=== PATIENT | female | born 1965 | race Caucasian/White ===

== ENCOUNTER 2020-07-04 15:08 | Emergency (ER) | payer BC, SELFPAY ==
--- NOTE | ~2020-07-04 | XR_ITS ---
XR chest 2V DATE: 07/04/2020 16:46 INDICATION: Left-sided chest pain for 3 weeks. History of mitral valve prolapse. TECHNIQUE: PA and lateral views COMPARISON: 04/17/2012 CT pulmonary scan 04/08/2012 two-view chest FINDINGS: Normal heart size. No hilar or mediastinal enlargement. The lungs are hyperinflated but eber ar of infiltrate or consolidation. No pleural effusion or pulmonary vascular congestion or pneumothor ax. Surgical clips, right upper quadrant, consistent with cholecystectomy. Included skeletal structures a re unremarkable. IMPRESSION: Bilateral hyperinflation; no active cardiopulmonary disease Reviewed, dictated and finalized at location B.
--- NOTE | 2020-07-04 15:09 | ECG_ITS ---
Measurements Intervals [place] Rate: 60 P: 48 DC: 138 QRS: 45 QRSD: 89 T: 34 QT: 384 QTc: 384 Interpretive Statements SINUS RHYTHM BORDERLINE ST-T WAVE ABNORMALITY- INFERIOR LEADS BASELINE ARTIFACT- I, II, III, AVR, AVL, AVF BORDERLINE ECG Electronically Signed On 07-04-2020 15:16:38 CDT by Dave Bradley D.O.
[2020-07-04 15:24] VITALS: BP 117/81; PULSE 62; RESP 17; TEMP 36.6; O2SAT 99
[2020-07-04 15:32] LABS: Basophils Percent Auto 0.6 % (0.2-1.2); Eosinophils Absolute Auto 0.1 K/mm3 (0-0.3); Eosinophils Percent Auto 1.2 % (0-4.4); Hematocrit 41.1 % (37.0-47.0); Hemoglobin 13.8 g/dL (12.0-15.0); Immature Granulocyte Absolute 0.01 K/mm3 (0.00-0.031); Immature Granulocyte Percent A 0.1 % (0-0.5); Lymphocytes Absolute Auto 2.14 K/mm3 (0.9-3.2); Lymphocytes Percent Auto 30.8 % (18.3-44.2); Mean Corpuscular HGB Conc 33.6 g/dl (32-36); Mean Corpuscular Hemoglobin 31.3 pg (26-34); Mean Corpuscular Volume 93.2 fl (80-100); Mean Platelet Volume 10.5 fl (7.4-10.4); Monocytes Absolute Auto 0.5 K/mm3 (0.1-0.6); Monocytes Percent Auto 6.8 % (2.6-8.5); Neutrophils Absolute Auto 4.2 K/mm3 (1.3-6.7); Neutrophils Percent Auto 60.5 % (45.5-73.1); Platelet Count Result 200 k/mm3 (150-375); Red Blood Count 4.41 M/mm3 (4.2-5.4); Red Cell Distribution Width 11.7 % (11.5-14.5); White Blood Count 6.9 K/mm3 (4.5-10.0)
[2020-07-04 15:39] LABS: Anion Gap 7 mmol/L (8-16); Blood Urea Nitrogen 21 mg/dL (7-17); Calcium 9.4 mg/dL (8.4-10.2); Carbon Dioxide 34 mmol/L (22-30); Chloride 103 mmol/L (98-107); Estimated CRCL calculation 57 ml/min; Estimated Glomerular Filt Rate > 60; Glucose 87 mg/dL (65-105); Sodium 144 mmol/L (137-145)
[2020-07-04 15:42] LABS: INR 1.1; Prothrombin Time 13.9 Seconds (11.1-14.7)
[2020-07-04 15:43] LABS: Partial Thromboplastin Time 30.4 SECONDS (22.3-36.8)
[2020-07-04 15:51] LABS: Troponin I < 0.012 ng/mL (0.000-0.034)
[2020-07-04 17:00] VITALS: BP 134/73; PULSE 57; RESP 18; O2SAT 99
--- NOTE | 2020-07-04 18:10 | ED.GENADULT ---
HPI - General Adult General Chief complaint: Chest Pain Stated complaint: cp Time Seen by Provider: 07/04/20 17:42 Source: patient History of Present Illness HPI narrative: Patient is a 55 y/o female complaining of intermittent chest pain since 2 weeks ago. She describes her chest pain burning and aching sensation mostly on left side of her chest. She rates her pain as 5/10 with no alleviating or exacerbating factor. Her pain radiates to left axilla sometimes. She has no pain at this time. Related Data Home Medications Medication Instructions Recorded Confirmed vit C 250 mg-E 200 unit-zinc 40 1 tablet PO .qd cap 05/10/20 mg-copper 1 [id number] capsule paroxetine HCl 20 mg tablet 20 mg PO DAILY 05/17/20 Allergies Allergy/AdvReac Type Severity Reaction Status Date / Time codeine Allergy Mild Unknown Verified 05/17/20 08:43 oxaprozin Allergy Mild Unknown Verified 05/17/20 08:43 Sulfa (Sulfonamide Allergy Mild Unknown Verified 05/17/20 08:43 Antibiotics) Review of Systems Constitutional: Constitutional: Denies chills, Denies fever(s), Denies headache(s) and Denies weakness Eyes: Eyes: Denies blurry vision ENT: Denies headache(s) and Denies neck pain Cardiovascular: Cardiovascular: Denies chest pain and Denies dyspnea Respiratory: Respiratory: Denies cough and Denies dyspnea Gastrointestinal: Gastrointestinal: Denies abdominal pain, Denies diarrhea, Denies nausea and Denies vomiting Genitourinary: Genitourinary: Denies hematuria and Denies dysuria Musculoskeletal: Musculoskeletal: Denies back pain and Denies neck pain Neurologic: Denies headache(s) and Denies weakness [facility] Family History Family History Mother Patient's mother is in good health Father Patient's father is Social History Social History Smoking status: Never smoker Second hand tobacco smoke exposure: No Alcohol intake: never Substance use: never Gender identity (if verbalized by the patient): Female Exam Const: General: no acute distress and well developed Orientation/consciousness: oriented to person, oriented to place, oriented to time and patient oriented x3 HENMT: Head: normocephalic Ears: external ears normal General nose exam: Normal external nose present Eyes: General: appearance normal, both eyes and all related structures Conjunctivae: conjunctivae normal Neck: Neck: normal visual inspection and full ROM Chest: Chest palpation & inspection: normal inspection of the chest and no tenderness Resp: Effort & Inspection: normal respiratory effort Auscultation: clear to auscultation bilaterally Cardio: Rate: regular rate Rhythm: regular rhythm GI: GI Palp: No abdominal tenderness and Yes Soft to palpation Skin: General skin exam: normal color and turgor normal Neuro: General: oriented to person, oriented to place, oriented to time and patient oriented x3 Cognition (Neuro): normal cognition Extrem: General: normal to inspection, full ROM and no pedal edema Psych: Appearance: grossly normal Mental Status: mental status grossly normal Affect: normal affect Course Reevaluation(s) Reevaluation #1: Rechecked. Patient feels well with no chest pain. Offered patient possible admission for observation, but patient declined and wanted to go home. Date: 07/04/20 Time: 19:25 Vital Signs Vital signs: Vital Signs Temperature 36.6 C 07/04/20 15:24 Pulse Rate 62 07/04/20 15:24 Respiratory Rate 17 07/04/20 15:24 Blood Pressure 117/81 07/04/20 15:24 Pulse Oximetry 99 07/04/20 15:24 Temperature 36.6 C 07/04/20 15:24 Pulse Rate 59 L 07/04/20 19:51 Respiratory Rate 18 07/04/20 19:51 Blood Pressure 131/77 07/04/20 19:51 Pulse Oximetry 59 L 07/04/20 19:51 Medical Decision Making Vital Signs Vital Signs: Vital Signs Temperature 36.6 C
[2020-07-04 18:35] LABS: D Dimer < 0.22 ug/mL (<0.48)
[2020-07-04 18:44] LABS: Troponin I < 0.012 ng/mL (0.000-0.034)
[2020-07-04 19:51] VITALS: BP 131/77; PULSE 59; RESP 18; O2SAT 59
== END 2020-07-04 20:04 | disposition home or self-care (01) ==
PROVIDERS: Emergency Provider Emergency Medicine; PCP Internal Medicine
DX: R94.31 Abnormal electrocardiogram [ECG] [EKG] (principal); R07.9 Chest pain, unspecified
CPT/HCPCS: 36415; 71046; 80048; 84484; 85025; 85380; 85610; 85730; 93005; 99284

== ENCOUNTER 2020-07-26 09:37 | Outpatient (CLI) | payer BC, SELFPAY ==
--- NOTE | 2020-07-26 09:42 | EST_ITS ---
Patient Info Name: Renata Zeng Age: 55 years : 1965 Gender: Female Ht: 66 in Wt: 130 lbs BSA: 1.66 m2 Technical Quality: Good Exam Date: 07/26/2020 10:55 AM [facility]am [facility] Patient Status: Outpatient Admit Date: 07/26/2020 Staff Ordering Physician: Yaya Sandhu DO Spinner Box: Talib Kramer RDCS Attending Provider: Yaya Sandhu DO Referring Physician: Edson HERNANDEZ; Exercise Technologist: Glenis Shaw RDCS Exercise Physician: Dave Bradley DO Exam Type: CA stress echo Study Info Indications R07.9 - Chest pain, unspecified Treadmill exercise stress echocardiogram is performed. Summary 1. 1. Negative Hernan exercise stress test for ischemic ST changes by ECG criteria. 2. 2. Good functional capacity, achieving 12 METs of workload. 3. 3. Appropriate HR response to exercise. 4. 4. Appropriate HR recovery at 1 minute post exercise. 5. 5. Negative stress echocardiogram for ischemia by wall motion analysis. 6. 6. Patient informed of the above results. Stress Echo Findings Left Ventricle Appropriate increase in LV endocardial thickening with systole. Appropriate augmentation of contractility with systole. No wall motion abnormality. Left Ventricle Normal LV systolic function, no wall motion abnormality. Protocol: Hernan Stress ECG Details Stage: REST Duration (min): 7 min : 40 sec Speed (mph): 0.0 Grade (%): 0 HR (bpm): 54 SBP (mmHg): 125 DBP (mmHg): 69 METS: --- Stage: REST Duration (min): 19 min : 54 sec Speed (mph): 0.0 Grade (%): 0 HR (bpm): 58 SBP (mmHg): 125 DBP (mmHg): 69 METS: --- Stage: STAGE 1 Duration (min): 1 min : 0 sec Speed (mph): 1.7 Grade (%): 10 HR (bpm): 85 SBP (mmHg): 125 DBP (mmHg): 69 METS: --- Stage: STAGE 1 Duration (min): 2 min : 0 sec Speed (mph): 1.7 Grade (%): 10 HR (bpm): 94 SBP (mmHg): 125 DBP (mmHg): 69 METS: --- Stage: STAGE 1 Duration (min): 3 min : 0 sec Speed (mph): 1.7 Grade (%): 10 HR (bpm): 82 SBP (mmHg): 133 DBP (mmHg): 65 METS: --- Stage: STAGE 2 Duration (min): 1 min : 0 sec Speed (mph): 2.5 Grade (%): 12 HR (bpm): 92 SBP (mmHg): 133 DBP (mmHg): 65 METS: --- Stage: STAGE 2 Duration (min): 2 min : 0 sec Speed (mph): 2.5 Grade (%): 12 HR (bpm): 92 SBP (mmHg): 136 DBP (mmHg): 62 METS: --- Stage: STAGE 2 Duration (min): 3 min : 0 sec Speed (mph): 2.5 Grade (%): 12 HR (bpm): 99 SBP (mmHg): 136 DBP (mmHg): 62 METS: --- Stage: STAGE 3 Duration (min): 1 min : 0 sec Speed (mph): 3.4 Grade (%): 14 HR (bpm): 109 SBP (mmHg): 144 DBP (mmHg): 65 METS: --- Stage: STAGE 3 Duration (min): 2 min : 0 sec Speed (mph): 3.4 Grade (%): 14 HR (bpm): 119 SBP (mmHg): 144 DBP (mmHg): 65 METS: --- Stage: STAGE 3 Duration (min): 3 min : 0 sec
== END 2020-07-26 09:38 | disposition home or self-care (01) ==
LOC: ANHCARD 09:38
PROVIDERS: PCP Internal Medicine; Visit Provider Internal Medicine
DX: R07.9 Chest pain, unspecified (principal)
CPT/HCPCS: 93351

== ENCOUNTER 2020-08-02 12:40 | Outpatient (CLI) | payer BC, SELFPAY ==
[2020-08-03 13:52] LABS: SARS-CoV-2 RNA PCR Positive
== END 2020-08-02 12:41 | disposition home or self-care (01) ==
LOC: CHSLAB 12:44
PROVIDERS: PCP Internal Medicine; Visit Provider Internal Medicine
DX: U07.1 COVID-19 (principal)
CPT/HCPCS: 87635; C9803; U0003

== ENCOUNTER 2020-10-10 15:49 | Outpatient (CLI) | payer BC, SELFPAY ==
--- NOTE | ~2020-10-10 | MM_ITS ---
EXAMINATION: MM screening [facility] BI w sabrina HISTORY: Screening mammogram TECHNIQUE: Craniocaudal and mediolateral oblique 3-D tomosynthesis images were obtained and synthetic 2-D images were generated. CAD analysis was submitted and interpreted. COMPARISON: 01/27/2019, 10/26/2015, 09/16/2014 BREAST PARENCHYMAL COMPOSITION: There are scattered areas of fibroglandular density. FINDINGS: There is no evidence of suspicious mass, calcification, or architectural distortion to sugg est malignancy in either breast. There has been no suspicious interval change. IMPRESSION: 1. No mammographic evidence of malignancy. 2. Recommend routine screening mammography in one year. BI-RADS Category 1: Negative Reviewed, dictated and finalized at location A. 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
== END 2020-10-10 15:50 | disposition home or self-care (01) ==
LOC: ANHIMG 15:51
PROVIDERS: PCP Internal Medicine; Visit Provider Nurse Practitioner Obstetrics & Gynecology
DX: Z12.31 Encounter for screening mammogram for malignant neoplasm of breast (principal)
CPT/HCPCS: 77063; 77067

== ENCOUNTER 2020-12-20 15:01 | Outpatient (CLI) | payer BC, SELFPAY | END 2020-12-20 15:02 | disposition home or self-care (01) | LOC: ANHCOVIDVC 15:01 | PROVIDERS: PCP Internal Medicine | DX: Z23 Encounter for immunization (principal) | CPT/HCPCS: 0001A; 91300 ==

== ENCOUNTER 2021-01-10 15:00 | Outpatient (CLI) | payer BC, SELFPAY | END 2021-01-10 15:01 | disposition home or self-care (01) | LOC: ANHCOVIDVC 15:00 | PROVIDERS: PCP Internal Medicine | DX: Z23 Encounter for immunization (principal) | CPT/HCPCS: 0002A; 91300 ==

== ENCOUNTER → 2021-09-07 08:14 | Outpatient (CLI) | payer BC, SELFPAY ==
--- NOTE | ~2021-09-07 | XR_ITS ---
XR lumbar spine 2-3V DATE: 09/07/2021 08:32 INDICATION: Lumbar radiculopathy TECHNIQUE: Standing AP and lateral and coned lateral lumbosacral views COMPARISON: 07/22/2014 CT abdomen pelvis FINDINGS: Diffuse osteopenia. Minimal dextroscoliosis of the thoracolumbar spine. No fracture or bone destruction. The lumbar and included lower thoracic pedicles are intact. There is borderline primary lumbar spinal stenosis. There is moderately prominent loss of interspace height at L5-S1 with minimal retrolisthesis at this level. The lumbar interspaces are well preserved. The sacroiliac joints appear normal. Status post cholecystectomy. IMPRESSION: Borderline primary lumbar spinal stenosis Osteopenia Minimal dextroscoliosis Moderately prominent loss of interspace height and minimal retrolisthesis at L5-S1 Reviewed, dictated and finalized at location A. [facility] UNIT NURSE IMPRESSION: Borderline primary lumbar spinal stenosis Osteopenia Minimal dextroscoliosis Moderately prominent loss of interspace height and minimal retrolisthesis at L5 -S1
== END ==
PROVIDERS: PCP Internal Medicine
DX: M54.16 Radiculopathy, lumbar region (principal); M85.88 Other specified disorders of bone density and structure, other site
CPT/HCPCS: 72100

== ENCOUNTER 2022-05-09 18:29 | Emergency (ER) | payer BC, SELFPAY ==
--- NOTE | ~2022-05-09 | CT_ITS ---
EXAMINATION: CT abdomen pelvis wo con DATE: 05/09/2022 21:05 INDICATION: flank pain TECHNIQUE: Computed tomography (CT) of the abdomen and pelvis was performed without intravenous contr ast. Automated exposure control and iterative reconstruction technique were employed. The dose-length product was 195.60 mGy-cm. COMPARISON: 07/22/2014. FINDINGS: Lower thorax: Unremarkable Liver: Normal. Biliary/Gallbladder: Gallbladder is absent. No bile duct dilation. Pancreas: No mass or duct dilation. Spleen: Normal. Adrenals:No mass. Kidneys: Mild left perinephric stranding and hydronephrosis. 3 mm right upper pole and punctate right midpole nonobstructing calculi. GI tract: No small or large bowel dilation. Appendix not visualized. Mesentery/Peritoneum: No ascites, mass, or free air. Retroperitoneum: No mass. Mild atherosclerotic abdominal aortic and/or arterial calcifications. Pelvis: Uterus is absent. 3 mm distal left ureteral stone. Soft Tissues: Soft tissues and body wall unremarkable. Bones: No acute osseous finding. IMPRESSION: 3 mm distal left ureteral stone causing mild obstructive uropathy. Reviewed, dictated and finalized at location K.
[2022-05-09 18:33] VITALS: BP 126/67; PULSE 81; RESP 14; TEMP 36.4; O2SAT 100
[2022-05-09 19:05] LABS: Basophils Percent Auto 0.3 % (0.2-1.2); Eosinophils Absolute Auto 0.1 K/mm3 (0-0.3); Eosinophils Percent Auto 0.6 % (0-4.4); Hematocrit 42.5 % (37.0-47.0); Hemoglobin 14.3 g/dL (12.0-15.0); Immature Granulocyte Absolute 0.01 K/mm3 (0.00-0.031); Immature Granulocyte Percent A 0.1 % (0-0.5); Lymphocytes Absolute Auto 2.15 K/mm3 (0.9-3.2); Lymphocytes Percent Auto 24.6 % (18.3-44.2); Mean Corpuscular HGB Conc 33.6 g/dl (32-36); Mean Corpuscular Hemoglobin 31.2 pg (26-34); Mean Corpuscular Volume 92.6 fl (80-100); Monocytes Absolute Auto 0.5 K/mm3 (0.1-0.6); Monocytes Percent Auto 5.9 % (2.6-8.5); Neutrophils Percent Auto 68.5 % (45.5-73.1); Platelet Count Result 255 k/mm3 (150-375); Red Blood Count 4.59 M/mm3 (4.2-5.4); Red Cell Distribution Width 12.1 % (11.5-14.5); White Blood Count 8.8 K/mm3 (4.5-10.0)
[2022-05-09 19:17] LABS: Alanine Aminotransferase 22 U/L (6-35); Albumin Level 4.7 g/dL (3.5-5.1); Alkaline Phosphatase 91 U/L (38-126); Anion Gap 13 mmol/L (8-16); Aspartate Amino Transferase 33 U/L (14-36); Bilirubin,Total 0.7 mg/dL (0.2-1.3); Blood Urea Nitrogen 20 mg/dL (7-17); Calcium 9.5 mg/dL (8.4-10.2); Carbon Dioxide 24 mmol/L (22-30); Chloride 102 mmol/L (98-107); Estimated CRCL calculation 72 ml/min; Estimated Glomerular Filt Rate > 60; Glucose 107 mg/dL (65-110); Lipase 123 U/L (23-300); Potassium 3.7 mmol/L (3.4-5.0); Sodium 139 mmol/L (137-145)
[2022-05-09 19:36] LABS: Add Urine Microscopic? YES; Appearance Urine Turbid (Clear); Bilirubin Urine Negative (Negative); Blood Urine 3+ (Negative); Color Urine Red (Yellow); Glucose Urine UA Negative (Negative); Ketones Urine 2+ mg/dL (Negative); Leukocyte Esterase Ur Negative LEU/UL (Negative); Nitrate Urine Negative (Negative); Protein Urine 1+ mg/dL (Negative); Urobilinogen Urine 0.2 mg/dL (<2.0)
[2022-05-09 19:44] LABS: Bacteria Urine Trace /hpf; RBC Urine >75 /hpf (0-2); Squamous Epithelial Cell Urine Rare /hpf (Few); WBC Urine 0-3 /hpf
--- NOTE | 2022-05-09 21:51 | ED.ABDPAIN ---
HPI - Abdominal Pain General Chief Complaint: Abdominal Pain Stated Complaint: abd pain, back pain Time Seen by Provider: 05/09/22 20:39 History of Present Illness HPI narrative: Patient is a 56-year-old female who presents ER with left-sided flank pain. Ongoing over the last couple of days. But really worsened this afternoon. Radiates into the epigastrium. No fevers or chills or sweats. Noticed blood in her urine. No dysuria. Has history of kidney stones in the past. Occasional nausea but no vomiting. Related Data Home Medications Medication Instructions Recorded Confirmed vit C 250 mg-vit E 90 mg-zinc 40 1 tablet PO .qd 05/10/20 12/25/21 mg-copper 1 [id number] capsule (PreserVision AREDS-2) paroxetine HCl 20 mg tablet 20 mg PO DAILY 05/17/20 12/25/21 Allergies Allergy/AdvReac Type Severity Reaction Status Date / Time codeine Allergy Mild Unknown Verified 05/09/22 21:10 oxaprozin Allergy Mild Unknown Verified 05/09/22 21:10 Sulfa (Sulfonamide Allergy Mild Unknown Verified 05/09/22 21:10 Antibiotics) Review of Systems Review of Systems: All systems reviewed & are unremarkable except as noted in HPI and below Constitutional: Constitutional: Denies chills and Denies fever(s) Cardiovascular: Cardiovascular: Denies chest pain Gastrointestinal: Gastrointestinal: Reports abdominal pain, Reports nausea and Denies vomiting Genitourinary: Genitourinary: Reports hematuria, Reports nocturia and Denies dysuria PMFSH Past Medical History Medical History (Updated 05/09/22 @ 21:56 by Ángel Mcgee MD) Hyperlipidemia Kidney stones Surgical History Surgical History (Updated 05/09/22 @ 21:56 by Ángel Mcgee MD) No pertinent past surgical history Family History Family History Mother Patient's mother is in good health Father Patient's father is Social History Social History Smoking status: Never smoker Second hand tobacco smoke exposure: No Alcohol intake: never Substance use: never Gender identity (if verbalized by the patient): Female Exam Narrative: GENERAL: Well-appearing, well-nourished, and in no acute distress. HEAD: Normocephalic, atraumatic. ENT: Mucous membranes moist. CHEST: Clear to auscultation. No respiratory distress. HEART: Regular rate and rhythm. Normal peripheral pulses. ABDOMEN: Soft, nontender, nondistended. EXTREMITIES: Normal range of motion. No edema. SKIN: Warm, dry, no rash. NEURO: Alert and oriented x3. PSYCH: Normal mood and affect. Course Course Emergency Course: Patient informed of results. Discharge home with supportive care. Vital Signs Vital signs: Vital Signs Temperature 97.5 F L 05/09/22 18:33 Pulse Rate 81 05/09/22 18:33 Respiratory Rate 14 05/09/22 18:33 Blood Pressure 126/67 05/09/22 18:33 Pulse Oximetry 100 05/09/22 18:33 Oxygen Delivery Room Air 05/09/22 18:33 Temperature 97.5 F L 05/09/22 18:33 Pulse Rate 81 05/09/22 18:33 Respiratory Rate 14 05/09/22 18:33 Blood Pressure 126/67 05/09/22 18:33 Pulse Oximetry 100 05/09/22 18:33 Oxygen Delivery Room Air 05/09/22 18:33 MDM - Abdominal Pain Lab Data Result diagrams: 05/09/22 18:48 05/09/22 18:48 Labs: Lab Results 05/09/22 05/09/22 05/09/22 Range/Units 18:48 18:48 19:30 WBC 8.8 (4.5-10.0) K/mm3 RBC 4.59 (4.2-5.4) M/mm3 Hgb 14.3 (12.0-15.0) g/dL Hct 42.5 (37.0-47.0) % MCV 92.6 (80-100) fl MCH 31.2 (26-34) pg MCHC 33.6 (32-36) g/dl RDW 12.1 (11.5-14.5) % Plt Count 255 (150-375) k/mm3 MPV 10.0 (7.4-10.4) fl Immature Gran % (Auto) 0.1 (0-0.5) % Neut % (Auto) 68.5 (45.5-73.1) % Lymph % (Auto) 24.6 (18.3-44.2) % [place] % (Auto) 5.9 (2.6-8.5) % Eos % (Auto) 0.6 (0-4.4) % Baso
[2022-05-09 22:19] VITALS: BP 122/83; PULSE 84; RESP 18; O2SAT 99
== END 2022-05-09 22:05 | disposition home or self-care (01) ==
PROVIDERS: Emergency Medicine; Emergency Provider Emergency Medicine; PCP Internal Medicine
DX: N20.1 Calculus of ureter (principal); Z87.442 Personal history of urinary calculi; E78.5 Hyperlipidemia, unspecified
CPT/HCPCS: 36415; 74176; 80053; 81001; 83690; 85025; 99284

== ENCOUNTER 2022-05-18 11:34 | Day surgery (SDC) | payer BC, SELFPAY ==
[2022-05-18] VITALS (10 sets, daily range): BP systolic 131–166; BP diastolic 53–84; PULSE 62–79; RESP 10–18; TEMP 36.7–37.2; O2SAT 97–100
--- NOTE | ~2022-05-18 | CT_ITS ---
EXAMINATION: CT abdomen pelvis wo con DATE: 05/18/2022 13:18 INDICATION: Left flank pain. History of kidney stones. TECHNIQUE: Computed tomography (CT) of the abdomen and pelvis was performed without intravenous contr ast. Automated exposure control and iterative reconstruction technique were employed. Exam dose: 199 .46 mGy-cm total exam DLP. COMPARISON: 05/18/2022 portable supine AP views FINDINGS: There is minimal dependent atelectasis at the lung bases. Normal heart size. No pericardial or pleural effusion. Status post cholecystectomy. The liver, spleen, pancreas, bile ducts and pancreatic duct are unremark able. Normal morphology of the adrenal glands. Approximately 3 mm nonobstructing right renal calculus. There is moderate left hydroureteronephrosis apparently due to an approximately 3 mm distal left uret eral calculus. There are multiple left pelvic phleboliths. The urinary bladder is unremarkable. Normal caliber of the abdominal aorta. No intraperitoneal or retroperitoneal or pelvic mass lesion or adenopathy or ascites. No bowel obstruction or intraperitoneal free air. A suspicious osteolytic or osteoblastic lesions. IMPRESSION: Probable 3 mm distal left ureteral obst ructing calculus with moderate left hydroureteronephrosis 3 mm nonobstructing right renal calculus Status post cholecystectomy Reviewed, dictated and finalized at [facility]. Reviewed, dictated and finalized at location B.
--- NOTE | ~2022-05-18 | XR_ITS ---
XR fluoroscopy no charge Ureteral stone extraction. TECHNIQUE: Fluoroscopy used during ureteral stone extraction performed by [Brian Cochran MD ] on 05/18/2022. 22 seconds of fluoroscopy time. with 4 fluoroscopic images captured. FINDINGS: Correlate with procedure note. IMPRESSION: Fluoroscopy used during ureteral stone extraction. Please refer to procedural report. Reviewed, dictated and finalized at location [facility].
--- NOTE | ~2022-05-18 | XR_ITS ---
EXAMINATION: XR abdomen/kub 1V DATE: 05/18/2022 12:36 INDICATION: Left flank pain. TECHNIQUE: A supine view of the abdomen on 2 radiographs was obtained. COMPARISON: CT abdomen and pelvis 05/09/2022 FINDINGS: There are no dilated loops of bowel. There is a phlebolith in left pelvis. Surgical clips i n the right upper quadrant are likely from cholecystectomy. IMPRESSION: 1. No visible urolithiasis. Reviewed, dictated and finalized at location A. IMPRESSION: 1. No visible urolithiasis.
--- NOTE | 2022-05-18 12:13 | ED.ABDPAIN ---
HPI - Abdominal Pain General Chief Complaint: Abdominal Pain Stated Complaint: kidney stone - planned lithotripsy Time Seen by Provider: 05/18/22 12:04 Source: patient and RN notes reviewed Mode of arrival: ambulatory Limitations: no limitations History of Present Illness HPI narrative: This is a 56 year old female with left distal ureteral calculus who presents for evaluation of left flank pain. She was diagnosed with this kidney stone 9 days ago and she was evaluated by urologist in clinic yesterday. She states her pain has been constant with diagnosis. She developed fever, chills, vomiting or urinary issues. She has been taking hydrocodone for her pain without relief. Her pain has gotten worse so she has come to ER. She took pain medication just before arrival. Related Data Home Medications Medication Instructions Recorded Confirmed vit C 250 mg-vit E 90 mg-zinc 40 1 tablet PO .qd 05/10/20 12/25/21 mg-copper 1 [id number]-eranps capsule (PreserVision AREDS-2) paroxetine HCl 20 mg tablet 20 mg PO DAILY 05/17/20 12/25/21 Allergies Allergy/AdvReac Type Severity Reaction Status Date / Time codeine Allergy Mild Unknown Verified 05/18/22 11:34 oxaprozin Allergy Mild Unknown Verified 05/18/22 11:34 Sulfa (Sulfonamide Allergy Mild Unknown Verified 05/18/22 11:34 Antibiotics) Review of Systems Review of Systems: All systems reviewed & are unremarkable except as noted in HPI and below Constitutional: Constitutional: Denies chills, Denies fatigue and Denies fever(s) Cardiovascular: Cardiovascular: Denies chest pain Respiratory: Respiratory: Denies chest congestion and Denies cough Gastrointestinal: Gastrointestinal: Reports abdominal pain, Denies bloating, Denies nausea and Denies vomiting Genitourinary: Genitourinary: Denies hematuria and Denies dysuria Musculoskeletal: Musculoskeletal: Reports back pain PMFSH Past Medical History Medical History Hyperlipidemia Kidney stones Surgical History Surgical History No pertinent past surgical history Family History Family History Mother Patient's mother is in good health Father Patient's father is Social History Social History Smoking status: Never smoker Second hand tobacco smoke exposure: No Alcohol intake: never Substance use: never Gender identity (if verbalized by the patient): Female Exam Const: General: alert Nutritional Appearance: well nourished Orientation/consciousness: patient oriented x3 Other: appears to be in pain, uncomfortable HENMT: Head: normal to inspection Mouth: Yes Normal oral and palatal mucosa present Eyes: EOM: EOMs intact bilaterally Chest: Chest palpation & inspection: normal inspection of the chest Resp: Effort & Inspection: normal respiratory effort Auscultation: clear to auscultation bilaterally Cardio: Rate: regular rate Rhythm: regular rhythm Heart sounds: no murmurs GI: GI Palp: Yes Soft to palpation, No Tenderness to palpation present (GI), No Guarding due to palpation present (GI) and No Rigid due to palpation Auscultation: normal bowel sounds Skin: General skin exam: normal color Rashes: no rashes Wounds: no wounds Neuro: General: patient oriented x3, moves all extremities and CN's II-XI intact bilaterally Cranial nerves: Yes Nystagmus not present Extrem: General: normal to inspection Psych: Mental Status: mental status grossly normal Course Reevaluation(s) Reevaluation #1: CT still shows unchanged obstructing distal ureter calculus. Patient is more comfortable. Dr. Cochran came to ER and he will take patient to OR. Date: 05/18/22 Time: 13:51 Vital Signs Vital signs: Vital Signs Temperature 98.9 F 05/18/22 11:35 P
[2022-05-18] MEDS: ONDANSETRON INJ 4 MG/2 ML VIAL IV PUSH (12:18)
[2022-05-18] MEDS: HYDROmorphone HCL INJ (*CRX) 1 MG/ML SYR IV PUSH (12:18)
[2022-05-18 12:20] LABS: Basophils Percent Auto 0.5 % (0.2-1.2); Eosinophils Absolute Auto 0.1 K/mm3 (0-0.3); Eosinophils Percent Auto 0.6 % (0-4.4); Hematocrit 42.3 % (37.0-47.0); Hemoglobin 13.8 g/dL (12.0-15.0); Immature Granulocyte Absolute 0.03 K/mm3 (0.00-0.031); Immature Granulocyte Percent A 0.3 % (0-0.5); Lymphocytes Absolute Auto 2.09 K/mm3 (0.9-3.2); Lymphocytes Percent Auto 24.3 % (18.3-44.2); Mean Corpuscular HGB Conc 32.6 g/dl (32-36); Mean Corpuscular Hemoglobin 30.8 pg (26-34); Mean Corpuscular Volume 94.4 fl (80-100); Mean Platelet Volume 9.8 fl (7.4-10.4); Monocytes Absolute Auto 0.6 K/mm3 (0.1-0.6); Monocytes Percent Auto 7.1 % (2.6-8.5); Neutrophils Absolute Auto 5.8 K/mm3 (1.3-6.7); Neutrophils Percent Auto 67.2 % (45.5-73.1); Platelet Count Result 237 k/mm3 (150-375); Red Blood Count 4.48 M/mm3 (4.2-5.4); Red Cell Distribution Width 12.1 % (11.5-14.5); White Blood Count 8.6 K/mm3 (4.5-10.0)
[2022-05-18] MEDS: LACTATED RINGERS 1,000 ML 999 ML IV CONT (12:22)
[2022-05-18 12:31] LABS: Alanine Aminotransferase 18 U/L (6-35); Albumin Level 4.5 g/dL (3.5-5.1); Alkaline Phosphatase 74 U/L (38-126); Anion Gap 9 mmol/L (8-16); Aspartate Amino Transferase 25 U/L (14-36); Bilirubin,Total 0.4 mg/dL (0.2-1.3); Blood Urea Nitrogen 19 mg/dL (7-17); Calcium 9.7 mg/dL (8.4-10.2); Carbon Dioxide 32 mmol/L (22-30); Chloride 99 mmol/L (98-107); Estimated CRCL calculation 63 ml/min; Estimated Glomerular Filt Rate > 60; Glucose 84 mg/dL (65-110); Potassium 3.6 mmol/L (3.4-5.0); Sodium 140 mmol/L (137-145)
[2022-05-18 13:02] LABS: Appearance Urine Clear (Clear); Bilirubin Urine Negative (Negative); Blood Urine 2+ (Negative); Color Urine Yellow (Yellow); Glucose Urine UA Negative (Negative); Ketones Urine Negative (Negative); Leukocyte Esterase Ur Trace LEU/UL (Negative); Nitrate Urine Negative (Negative); Protein Urine Negative (Negative); Specific Grav Ur 1.025 (1.001-1.035); Urobilinogen Urine 0.2 mg/dL (<2.0)
[2022-05-18 13:09] LABS: Mucus Urine Rare /lpf; RBC Urine >75 /hpf (0-2); Squamous Epithelial Cell Urine Many /hpf (Few)
[2022-05-18 13:10] LABS: Add Urine Microscopic? YES
--- NOTE | 2022-05-18 14:39 | PM.HPGS ---
History of Present Illness History of Present Illness Consent: Risks, benefits, and alternatives have been discussed and questions answered. Patient agrees to proceed with procedure. Chief complaint: kidney stone - planned lithotripsy Narrative: Renata Zeng is a 56 year old female who is known to me from several years ago with he had a ureteral calculus that. He has now been struggling with intermittent left flank pain last 6-7 days. This occurs without identifiable precipitating injury or strain. When present is becoming progressively severe and associated with nausea. Imaging on 2 occasions reveals an obstructing 3 mm left distal ureteral calculus. After discussion of options including ongoing medical expulsive therapy versus endoscopic extraction she has elected for the latter. She is aware of the risk of ureteral injury, hematuria and recurrent stones. Review of Systems Cardiovascular: Cardiovascular: Denies chest pain, Denies lightheadedness, Denies palpitations and Denies dyspnea Respiratory: Respiratory: Denies dyspnea Gastrointestinal: Gastrointestinal: Denies diarrhea, Denies nausea and Denies vomiting Genitourinary: Genitourinary: Denies hematuria and Denies dysuria Endocrine: Endocrine: Denies palpitations PMFSH Past Medical History Medical History Hyperlipidemia Kidney stones Surgical History Surgical History No pertinent past surgical history Family History Family History Mother Patient's mother is in good health Father Patient's father is Social History Social History Smoking status: Never smoker Second hand tobacco smoke exposure: No Alcohol intake: never Substance use: never Gender identity (if verbalized by the patient): Female Meds Home Medications and Allergies Home Medications Medication Instructions Recorded Confirmed Type vit C 250 mg-vit E 90 mg-zinc 40 1 tablet PO .qd 05/10/20 12/25/21 History mg-copper 1 [id number]-eqcrus-rctofc capsule (PreserVision AREDS-2) paroxetine HCl 20 mg tablet 20 mg PO DAILY 05/17/20 12/25/21 History rosuvastatin 5 mg tablet 5 mg PO DAILY #90 tabs 08/04/21 12/25/21 Rx cyclobenzaprine 10 mg tablet 10 mg PO QHS PRN muscle spasm #30 12/15/21 12/25/21 Rx tabs hydrocodone 5 mg-acetaminophen 325 1 tablet PO BID PRN pain #14 tabs 12/25/21 12/25/21 Rx mg tablet hydrocodone 5 mg-acetaminophen 325 1 tablet PO Q6H PRN pain #12 tabs 05/09/22 Rx mg tablet ondansetron 4 mg disintegrating 4 mg PO Q6H PRN nausea and 05/09/22 Rx tablet vomiting #10 tabs tamsulosin 0.4 mg capsule 0.4 mg PO DAILY #5 caps 05/09/22 Rx Allergies Allergy/AdvReac Type Severity Reaction Status Date / Time codeine Allergy Mild Unknown Verified 05/18/22 11:34 oxaprozin Allergy Mild Unknown Verified 05/18/22 11:34 Sulfa (Sulfonamide Allergy Mild Unknown Verified 05/18/22 11:34 Antibiotics) Vital Signs Vital Signs - 24 hr 05/18/22 11:35 05/18/22 13:40 Temperature 98.9 F Pulse Rate 69 71 Respiratory Rate 16 18 Blood Pressure 140/79 138/84 Pulse Oximetry 100 97 Oxygen Delivery Room Air Assessment and Plan Assessment and plan (1) Calculus of distal left ureter: Code(s): N20.1 - Calculus of ureter Status: Acute Assessment and Plan: Cystoscopy, left ureteroscopy with possible laser lithotripsy and stent placement.
--- NOTE | 2022-05-18 14:41 | WPDHPUPDATE1 ---
History and Physical Update Update Date/Time: 05/18/22 14:41 History and Physical has been reviewed, including an updated exam of the patient. There are NO changes in the patient's condition. Risks, benefits, and alternatives have been discussed and questions answered. Patient agrees to proceed with procedure.
[2022-05-18] MEDS: fentaNYL CITRATE INJ (*CRX) 100 MCG/2 ML VIAL 50 MCG IV PUSH ×2 (15:05→15:38)
[2022-05-18] MEDS: LACTATED RINGERS 1,000 ML 30 ML IV CONT ×2 (15:07→16:56)
--- NOTE | 2022-05-18 15:48 | WPDANESEPPF ---
Anes - Initial Pre Proc Eval Procedure: Operation Date: 05/18/22 16:00 Proposed Procedures p Cystoscopy, Left Ureteroscopy, Left Stone Extraction - Brian Cochran MD Date/Time: 05/18/22 15:48 Surgeon: Brian Cochran MD Pre Op Diagnosis: kidney stone - planned lithotripsy Patient Data Age: 56 Gender: F Height: 1.68 m Weight: 63.63 kg Last Vital Signs Temp 36.7 C 05/18/22 14:45 Pulse 69 05/18/22 14:45 Resp 16 05/18/22 14:45 BP 137/66 05/18/22 14:45 Pulse Ox 98 05/18/22 14:45 O2 Del Method Room Air 05/18/22 14:45 Allergies Allergy/AdvReac Type Severity Reaction Status Date / Time codeine Allergy Mild Unknown Verified 05/18/22 11:34 oxaprozin Allergy Mild Unknown Verified 05/18/22 11:34 Sulfa (Sulfonamide Allergy Mild Unknown Verified 05/18/22 11:34 Antibiotics) Home Medications Medication Instructions Recorded Confirmed Type vit C 250 mg-vit E 90 mg-zinc 40 1 tablet PO .qd 05/10/20 12/25/21 History mg-copper 1 sr-pejlzd-kdaroo capsule (PreserVision AREDS-2) paroxetine HCl 20 mg tablet 20 mg PO DAILY 05/17/20 12/25/21 History rosuvastatin 5 mg tablet 5 mg PO DAILY #90 tabs 08/04/21 12/25/21 Rx cyclobenzaprine 10 mg tablet 10 mg PO QHS PRN muscle spasm #30 12/15/21 12/25/21 Rx tabs hydrocodone 5 mg-acetaminophen 325 1 tablet PO BID PRN pain #14 tabs 12/25/21 12/25/21 Rx mg tablet hydrocodone 5 mg-acetaminophen 325 1 tablet PO Q6H PRN pain #12 tabs 05/09/22 Rx mg tablet ondansetron 4 mg disintegrating 4 mg PO Q6H PRN nausea and 05/09/22 Rx tablet vomiting #10 tabs tamsulosin 0.4 mg capsule 0.4 mg PO DAILY #5 caps 05/09/22 Rx Laboratory Tests 05/18/22 05/18/22 05/18/22 12:14 12:14 12:43 WBC 8.6 K/mm3 K/mm3 (4.5-10.0) RBC 4.48 M/mm3 M/mm3 (4.2-5.4) Hgb 13.8 g/dL g/dL (12.0-15.0) Hct 42.3 % % (37.0-47.0) MCV 94.4 fl fl (80-100) MCH 30.8 pg pg (26-34) MCHC 32.6 g/dl g/dl (32-36) RDW 12.1 % % (11.5-14.5) Plt Count 237 k/mm3 k/mm3 (150-375) MPV 9.8 fl fl (7.4-10.4) Immature Gran % (Auto) 0.3 % % (0-0.5) Neut % (Auto) 67.2 % % (45.5-73.1) Lymph % (Auto) 24.3 % % (18.3-44.2) [place] % (Auto) 7.1 % % (2.6-8.5) Eos % (Auto) 0.6 % % (0-4.4) Baso % (Auto) 0.5 % % (0.2-1.2) Lymph # (Auto) 2.09 K/mm3 K/mm3 (0.9-3.2) [place] # (Auto) 0.6 K/mm3 K/mm3 (0.1-0.6) Eos # (Auto) 0.1 K/mm3 K/mm3 (0-0.3) Baso # (Auto) 0.0 K/mm3 K/mm3 (0.0-0.1) Abs Immat Gran (auto) 0.03 K/mm3 K/mm3 (0.00-0.031) Absolute Neuts (auto) 5.8 K/mm3 K/mm3 (1.3-6.7) Absolute Nucleated RBC 0.0 K/mm3 K/mm3 (0.0-0.012) Nucleated RBC % 0.0 % % (0.0-0.2) Sodium 140 mmol/L mmol/L (137-145) Potassium 3.6 mmol/L mmol/L (3.4-5.0) Chloride 99 mmol/L mmol/L (98-107) Carbon Dioxide 32 mmol/L H mmol/L (22-30) Anion Gap 9 mmol/L mmol/L (8-16) BUN 19 mg/dL H mg/dL (7-17) Creatinine 0.80 mg/dL mg/dL (0.7-1.0) Estim Creat Clear Calc 63 ml/min ml/min Estimated GFR > 60 (59 - ) Glucose 84 mg/dL mg/dL (65-110) Calcium 9.7 mg/dL mg/dL (8.4-10.2) Total Bilirubin 0.4 mg/dL mg/dL (0.2-1.3) AST 25 U/L U/L (14-36) ALT 18 U/L U/L (6-35) Alkaline Phosphatase 74 U/L U/L (38-126) Total Protein 7.0 g/dL g/dL (6.3-8.2) Albumin 4.5 g/dL g/dL (3.5-5.1) Urine Color Yellow (Yellow) Urine Appearance Clear (Clear) Urine pH 6.0 (5.0-9.0) Ur Specific Bandy 1.025 (1.001-1.035) Urine Protein Negative mg/dL mg/dL (Negative) Urine Glucose (UA) Negative mg/dL mg/dL (Negative) Ur
[2022-05-18] MEDS: SCOPOLAMINE 1.5 MG PATCH TRANSDERM (15:50)
[2022-05-18] MEDS: ceFAZolin 2 GM/D5W 50 ML 2 GM/50 ML BAG IVPB (16:20)
[2022-05-18] MEDS: LIDOCAINE HCL 2% GEL UROJET 10 ML PKG MUCOUS MEM (16:37)
[2022-05-18] MEDS: KETOROLAC 30 MG/ML VIAL (*BKC) IV PUSH (16:40)
--- NOTE | 2022-05-18 16:55 | W.PM.PROC2 ---
Procedure Note - Detailed Date of Procedure 05/18/22 Pre-op Diagnosis Left ureteral stone Post-op Diagnosis Same Procedure Performed Cystoscopy, left ureteroscopy with stone extraction Surgeon Brian Cochran MD Description of Procedure The patient was brought to the operative suite where she is prepped and draped in a routine sterile fashion while in the dorsal lithotomy position after the uneventful induction of a general LMA anesthetic. A 19F rigid cystoscope was placed in the bladder. The patient had no evidence of urethral stricture or bladder neck contracture. The bladder mucosa was endoscopically normal without hyperemia or neoplasm. There was a single, orthotopic ureteral orifice bilaterally. A 0.035 glidewire was advanced into the left renal pelvis under fluoroscopy. The distal ureter was dilated with an 8F/10F ureteral dilator. Ureteroscopy was undertaken with a short, tapered, semi-rigid ureteroscope and the stone was extracted with ease using a 1.9F Escape disposable stone basket. Due to the ease of this manipulation I opted not to place a ureteral stent. The patient's bladder was emptied and was taken to the recovery room having tolerated this procedure well. Drains No Packing No Pathology None sent Complications No immediate complications Condition Stable Disposition PACU
== END 2022-05-18 18:53 | disposition home or self-care (01) ==
LOC: ANHED 13:53 → ANHSURGERY 14:04
PROVIDERS: Emergency Provider General Practice; PCP Internal Medicine; Visit Provider Urology
PROC: (CPT 52352; principal; 2022-05-18 16:00)
DX: N20.1 Calculus of ureter (principal); E78.5 Hyperlipidemia, unspecified
CPT/HCPCS: 52352; 36415; 74018; 74176; 80053; 81001; 81025; 82365; 85025; 87086; 87147; 87181; 87186; 88300; 96365; 96375; 99199; 99285; A9270; C1769; J0131; J0330; J0690; J1100; J1170; J1200; J1885; J2405; J2704; J3010; J7120

== ENCOUNTER → 2023-11-21 14:10 | Outpatient (CLI) | payer BC, SELFPAY ==
--- NOTE | ~2023-11-21 | MM_ITS ---
EXAMINATION: MM screening dorian BI w sabrina HISTORY: Screening mammogram, family history of breast cancer in her sister. TECHNIQUE: Craniocaudal and mediolateral oblique 3-D tomosynthesis images were obtained and synthetic 2-D images were generated. CAD analysis was submitted and interpreted. COMPARISON: 10/10/2020, 01/24/2019, 10/26/2015 BREAST PARENCHYMAL COMPOSITION: There are scattered areas of fibroglandular density. FINDINGS: No suspicious mass, calcification, or architectural distortion are identified in either lucian ast to suggest malignancy. There has been no suspicious interval change. IMPRESSION: 1. No mammographic evidence of malignancy. 2. Recommend routine screening mammography in one year. BI-RADS Category 1: Negative Reviewed, dictated and finalized at location A. ATTENDANT
== END ==
PROVIDERS: PCP Nurse Practitioner; Visit Provider Nurse Practitioner
DX: Z12.31 Encounter for screening mammogram for malignant neoplasm of breast (principal)
CPT/HCPCS: 77063; 77067

== ENCOUNTER 2024-09-08 10:34 | Outpatient (CLI) | payer BC, SELFPAY ==
--- NOTE | ~2024-09-08 | XR_ITS ---
Lumbosacral Spine: AP and lateral views Clinical History: Pain Findings: The normal lordotic curve is maintained. The vertebral bodies and posterior elements are i ntact. The intervertebral disc spaces are preserved. Moderate facet arthropathy present throughout t he lumbar spine. The sacroiliac joints are normally outlined. Impression: Facet arthropathy, as above. Reviewed, dictated and finalized at location . 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
--- NOTE | ~2024-09-08 | XR_ITS ---
Cervical Spine: AP, lateral, open-mouth views Clinical History: Pain Findings: The normal lordotic curve is maintained. No fracture seen. There is minimal grade 1 anterol isthesis of C4-C5. There is 3 mm retrolisthesis of C5 over C6. There is severe degenerative disc narr owing at C5-C6. There is mild degenerative disc change in the remaining cervical spine. There is mode rate to advanced facet arthropathy throughout the cervical spine. Pre-vertebral soft tissues are unre markable. Impression: Moderate to advanced degenerative spondylosis, as above. Reviewed, dictated and finalized at location . [employer]AL SERVICE MANAGER Impression: Moderate to advanced degenerative spondylosis, as above.
== END 2024-09-08 10:35 | disposition home or self-care (01) ==
LOC: MICIMG 10:36
PROVIDERS: PCP Chiropractor Rehabilitation; Visit Provider Chiropractor Rehabilitation
DX: M54.50 Low back pain, unspecified (principal); M50.30 Other cervical disc degeneration, unspecified cervical region
CPT/HCPCS: 72040; 72100

== ENCOUNTER 2024-11-24 07:34 | Outpatient (CLI) | payer BC, SELFPAY ==
--- NOTE | ~2024-11-24 | MM_ITS ---
EXAMINATION: MM screening dorian BI w sabrina HISTORY: Screening TECHNIQUE: Craniocaudal and mediolateral oblique 3-D tomosynthesis images were obtained and synthetic 2-D images were generated. CAD analysis was submitted and interpreted. COMPARISON: Comparison to multiple prior studies sequentially, with oldest reviewed study dated 10/26. BREAST PARENCHYMAL COMPOSITION: There are scattered areas of fibroglandular density. FINDINGS: There is no evidence of suspicious mass, calcification, or architectural distortion to sugg est malignancy in either breast. There has been no suspicious interval change. IMPRESSION: 1. No mammographic evidence of malignancy. 2. Recommend routine screening mammography in one year. BI-RADS Category 1: Negative Reviewed, dictated and finalized at location B. MINER BLASTING
== END 2024-11-24 07:35 | disposition home or self-care (01) ==
LOC: MICIMG 07:35
PROVIDERS: PCP Internal Medicine; Visit Provider Obstetrics & Gynecology
DX: Z12.31 Encounter for screening mammogram for malignant neoplasm of breast (principal)
CPT/HCPCS: 77063; 77067

== ENCOUNTER 2025-03-11 10:29 | Outpatient (CLI) | payer BC, SELFPAY ==
--- NOTE | ~2025-03-11 | MR_ITS ---
MRI of the lumbar spine Clinical History: Back pain Technique: Axial T2-weighted images, and sagittal T1-weighted, T2-weighted, and and T2 fat-sat images were acquired. Findings: There is no fracture or subluxation of the lumbar spine. Vertebral bodies maintain normal h eight and alignment. No bone marrow signal reality seen. At L1-L2, L2-L3, there is no disc bulge or herniation. No spinal canal stenosis or neural foraminal n arrowing at these levels. At L3-L4 and L4-L5, there are minimal disc bulges. There is mild facet arthropathy at these levels. N o spinal canal stenosis or neural foraminal narrowing. At L5-S1, there is moderate to advanced degenerative disc 9. There is minimal disc bulge with mild fa cet arthropathy. No spinal canal stenosis. There is mild right neural foraminal narrowing. Left neura l foramen preserved. Paravertebral soft tissues are unremarkable. Impression: Mild degenerative spondylosis overall, as detailed above. Reviewed, dictated and finalized at location . Impression: Mild degenerative spondylosis overall, as detailed above.
== END 2025-03-11 10:30 | disposition home or self-care (01) ==
LOC: GOSHIMG 10:29
PROVIDERS: PCP Chiropractor Rehabilitation; Visit Provider Chiropractor Rehabilitation
DX: M47.26 Other spondylosis with radiculopathy, lumbar region (principal); M47.27 Other spondylosis with radiculopathy, lumbosacral region
CPT/HCPCS: 72148